=== PATIENT | female | born 1960 | race Two or more races ===

== ENCOUNTER 2021-10-27 08:08 | Outpatient (CLI) | payer OTHER | END 2021-10-27 08:24 | disposition home or self-care (01) | LOC: TOM 08:08 | PROVIDERS: ATTEND Internal Medicine | DX: K57.30 Diverticulosis of large intestine without perforation or abscess without bleeding (principal); K56.50 Intestinal adhesions [bands], unspecified as to partial versus complete obstruction; Z86.010 Personal history of colon polyps ==